=== PATIENT | female | born 1975 | race Caucasian/White ===

== ENCOUNTER 2016-09-09 01:45 | Emergency (ER) | payer OTHER ==
[~2016-09-09] VITALS: Ht 165.1 cm; Wt 77.1 kg
--- NOTE | 2016-09-09 02:01 | NUR ---
PT BIBA#102 PT STATES SHE HAS BEEN DRINKING AND STATES SHE WANTS TO KILLHERSELF BY DRINKING HER SELF TO , PT DENIES HI, PT ON MONITOR, BELONGINGS REMOVED FROM ROOM, MADE AWARE WILL CONTINUE TO MONITOR.
[2016-09-09] MEDS ORDERED: OLANZAPINE 5 MG TABLET ONE (02:05)
[2016-09-09] MEDS ORDERED: OLANZAPINE 10 MG VIAL IM ONE ×2 (02:09→02:30)
[2016-09-09] MEDS ORDERED: WATER FOR INJECTION,STERILE 10 ML ONE (02:09)
[2016-09-09] MEDS ORDERED: OLANZAPINE 5 MG/TAB.RAPDIS PO ONE (02:30)
[2016-09-09 02:47] LABS: BASOPHILS % (AUTO) 0.6 % (0.0-2.0); EOSINOPHILS # (AUTO) 0.1 /CMM (0.0-0.7); EOSINOPHILS % (AUTO) 1.2 % (0.0-6.0); HEMATOCRIT 40 % (33-45); HEMOGLOBIN 13.5 g/dL (11.5-14.8); LYMPHOCYTES # (AUTO) 2.2 /CMM (0.8-4.8); LYMPHOCYTES % (AUTO) 26.7 % (20.0-44.0); MEAN CORPUSCULAR HEMOGLOBIN 31 PG (26.0-33.0); MEAN CORPUSCULAR HGB CONC 33 g/dl (31.0-36.0); MEAN CORPUSCULAR VOLUME 92 fL (82-100); MONOCYTES # (AUTO) 0.8 /CMM (0.1-1.30); MONOCYTES % (AUTO) 9.6 % (2.0-12.0); NEUTROPHILS % (AUTO) 61.9 % (43.0-81.0); PLATELET COUNT (AUTO) 238 /CMM (150-450); RDW COEFFICIENT OF VARIATION 13.4 (11.5-15.0); WHITE BLOOD COUNT (AUTO) 8.1 K/uL (4.3-11.0)
[2016-09-09 03:08] LABS: ALBUMIN 3.5 g/dL (3.4-5.0); BILIRUBIN,TOTAL 0.3 mg/dL (0.2-1.0); CALCIUM, SERUM 8.6 mg/dL (8.5-10.1); CREATININE 0.7 mg/dL (0.6-1.3); POTASSIUM 3.1 mmol/L (3.5-5.1); SALICYLATE 3.6 mg/dL (2.8-20.0); TOTAL PROTEIN, SERUM 7.1 g/dL (6.4-8.2)
--- NOTE | 2016-09-09 04:00 | NUR ---
Patient is resting comfortably in bed with eyes closed. Easily aroused. VSS
[2016-09-09 04:58] LABS: BILIRUBIN,URINE NEGATIVE (NEGATIVE); BLOOD, URINE NEGATIVE Ery/uL (NEGATIVE); KETONES,URINE NEGATIVE (NEGATIVE); LEUKOCYTE ESTERASE ,URINE NEGATIVE (NEGATIVE); NITRITE, URINE NEGATIVE (NEGATIVE); PH,URINE 5.5 (5.0-8.0); PROTEIN,URINE NEGATIVE (NEGATIVE); UGLUCOSE NEGATIVE (NEGATIVE); UROBILINOGEN,URINE 0.2 EU/dL (0.2)
[2016-09-09 04:59] LABS: APPEARANCE,URINE CLEAR (CLEAR); COLOR,URINE STRAW (YELLOW)
[2016-09-09] MEDS ORDERED: POTASSIUM CHLORIDE 20 MEQ TAB.PRT.SR PO ONE ×2 (05:00→05:32)
[2016-09-09 05:01] LABS: PREGNANCY TEST URINE QUAL NEGATIVE (NEGATIVE)
[2016-09-09 05:03] LABS: CANNABINOID, URINE NEGATIVE (NEGATIVE); PHENCYCLIDINE SCREEN,URINE NEGATIVE (NEGATIVE)
--- NOTE | 2016-09-09 05:23 | NUR ---
PT DENIES SI AND STATES SHE JUST WANTS TO SLEEP MD MADE AWARE WILL CONTINUE TO MONITOR.
[2016-09-09 06:13] VITALS: BP 130/76
== END 2016-09-09 06:14 | disposition home or self-care (01) ==
LOC: ER 01:51
DX: F10.129 Alcohol abuse with intoxication, unspecified (principal)
CPT/HCPCS: 36415; 80048; 80076; 80305; 80329; 81001; 82962; 84703; 85025; 93005 ×2; 96372; 99285; A4606; G0480 ×2; J3490; Z7610; 81000-TC; G6039-TC

== ENCOUNTER 2017-07-30 15:41 | Emergency (ER) | payer OTHER ==
[~2017-07-30] VITALS: Ht 170.2 cm; Wt 71.7 kg
--- NOTE | 2017-07-30 15:50 | NUR ---
PT BIB RA WITH A C/O ANXIETY, HYPERVENTILATING, C/O NOT BEING ABLE TO MOVE LUE WITHOUT PAIN. PT WILL NOT SQUEEZE MY FINGERS STATING: "I CAN'T". PT WAS PLACED ON THE MONITOR AND CONTINUOUS PULSE OX. PT IS SCREEMING/CRYING AND DENIES TAKING ALCOHOL OR DRUGS AT THIS TIME. PER EMS, NEIGHBORS AT THE APARTMENT WHERE PT LIVES HEARD SCREAMING AND CALLED 911. PER EMS, PT HAS PSYCH HX, BUT WOULD NOT TELL EMS WHAT THE HX WAS. PT IS AWAITING EVAL BY .
--- NOTE | 2017-07-30 15:53 | NUR ---
DR. NAVARRO IS AT THE BEDSIDE EVALUATING THE PT.
--- NOTE | 2017-07-30 16:05 | NUR ---
URINE SAMPLE OBTAINED. PT AMBULATED OUT OF THE BATHROOM AND HAD THE SAMPLE CUP IN HER LEFT HAND. PT THREW AWAY PAPER TOWEL AND HANDED THE URINE SAMPLE TO ME WITH HER LEFT HAND. PT THEN AMBULATED TO BED #14. DR. NAVARRO NOTIFIED.
[2017-07-30 16:26] LABS: BASOPHILS # (AUTO) 0.1 /CMM (0.0-0.2); BASOPHILS % (AUTO) 1.4 % (0.0-2.0); EOSINOPHILS # (AUTO) 0.1 /CMM (0.0-0.7); EOSINOPHILS % (AUTO) 1.4 % (0.0-6.0); HEMATOCRIT 44 % (33-45); HEMOGLOBIN 15.3 g/dL (11.5-14.8); LYMPHOCYTES # (AUTO) 1.7 /CMM (0.8-4.8); LYMPHOCYTES % (AUTO) 17.5 % (20.0-44.0); MEAN CORPUSCULAR HEMOGLOBIN 31 PG (26.0-33.0); MEAN CORPUSCULAR HGB CONC 35 g/dl (31.0-36.0); MEAN CORPUSCULAR VOLUME 89 fL (82-100); MONOCYTES # (AUTO) 0.6 /CMM (0.1-1.30); MONOCYTES % (AUTO) 6.3 % (2.0-12.0); NEUTROPHILS # (AUTO) 7.5 /CMM (1.8-8.9); NEUTROPHILS % (AUTO) 73.4 % (43.0-81.0); RDW COEFFICIENT OF VARIATION 12.8 (11.5-15.0); RED BLOOD CELL COUNT(AUTO) 4.93 MIL/uL (4.0-5.2)
[2017-07-30 16:29] LABS: PLATELET COUNT (AUTO) 205 /CMM (150-450)
[2017-07-30 16:35] LABS: APPEARANCE,URINE Clear (CLEAR); BILIRUBIN,URINE SMALL (NEGATIVE); BLOOD, URINE Negative Ery/uL (NEGATIVE); COLOR,URINE Yellow (YELLOW); KETONES,URINE 15 (NEGATIVE); LEUKOCYTE ESTERASE ,URINE Negative (NEGATIVE); NITRITE, URINE Negative (NEGATIVE); PH,URINE 6.5 (5.0-8.0); PROTEIN,URINE 30 mg/dl (NEGATIVE); UGLUCOSE Negative (NEGATIVE); UROBILINOGEN,URINE 0.2 EU/dL (0.2)
[2017-07-30 16:39] LABS: BACTERIA,URINE Few /HPF (None Seen)
[2017-07-30 16:40] LABS: CALCIUM OXALATE CRYSTALS,UR Few /HPF (None Seen); MUCUS,URINE Few /LPF (None Seen); RBC,URINE 0-2 /HPF (0-2); SQUAMOUS EPITHELIAL CELL,UR Moderate /HPF (None Seen)
[2017-07-30 17:11] LABS: CALCIUM, SERUM 8.7 mg/dL (8.5-10.1); CARBON DIOXIDE 21 mmol/L (21-32); CHLORIDE 108 mmol/L (98-107); CREATININE 0.8 mg/dL (0.6-1.3); GLUCOSE 111 mg/dL (74-106); POTASSIUM 3.7 mmol/L (3.5-5.1); SODIUM SERUM 142 mmol/L (136-145); UREA NITROGEN, BLOOD 20 mg/dL (7-18)
[2017-07-30 17:16] LABS: ALANINE AMINOTRANSFERASE 31 U/L (12-78); ALBUMIN 3.5 g/dL (3.4-5.0); ALCOHOL, BLOOD < 3 mg/dL (0-0); ALKALINE PHOSPHATASE 103 U/L (46-116); ASPARTATE AMINOTRANSFERASE 24 U/L (15-37); BILIRUBIN,TOTAL 0.4 mg/dL (0.2-1.0)
[2017-07-30 17:19] LABS: ACETAMINOPHEN < 2 ug/ml (10-30); SALICYLATE < 2.8 mg/dL (2.8-20.0)
--- NOTE | 2017-07-30 17:33 | NUR ---
PT IS ASKING FOR MORPHINE IVP. PT IS MOVING THE LUE. VSS. NO S/S OF PAIN OR DISTRESS NOTED. WILL CONTINUE TO MONITOR THE PT.
[2017-07-30] MEDS ORDERED: IBUPROFEN 600 MG TABLET PO ONE (18:00)
--- NOTE | 2017-07-30 18:03 | NUR ---
PT REFUSED MEDICATION. PT WANTED TO LEAVE. PT REC'D ACI AND RX, BUT REFUSED TO SIGN D/C PAPERWORK. PT AMBULATED OUT WITH A STEADY GAIT. PT WAS ABLE TO MOVE THE LUE. PT'S VSS.
[2017-07-30 18:07] VITALS: BP 158/78
== END 2017-07-30 18:08 | disposition home or self-care (01) ==
LOC: ER 15:43
DX: F41.0 Panic disorder [episodic paroxysmal anxiety] (principal); F10.10 Alcohol abuse, uncomplicated
CPT/HCPCS: 36415; 80048-TC; 80076-TC; 80305; 81000-TC; 84703-TC; 85025-TC; A4606; G0480; Z7610